=== PATIENT | female | born 1940 | race Two or more races ===

== ENCOUNTER 2017-06-24 09:51 | Inpatient (IN) | payer OTHER, MEDICAID ==
[~2017-06-24] VITALS: Ht 149.9 cm; Wt 44.5 kg
[2017-06-24 11:13] LABS: Basophils # (auto) 0.1 uL; Basophils % (auto) 0.9 % (0.0-2.0); Eosinophils # (auto) 0.3 uL; Eosinophils % (auto) 5.6 % (0.0-7.0); Hemoglobin 11.5 g/dL (12.2-16.2); Lymphocytes # (auto) 0.9 uL; Lymphocytes % (auto) 14.5 % (10.0-50.0); Mean Corpuscular Hemoglobin 30.3 pg (28.0-32.0); Mean Corpuscular Hgb Conc. 32.8 g/dL (32.0-36.0); Mean Corpuscular Volume 92.3 fL (80.0-100.0); Monocytes # (auto) 0.6 uL; Monocytes % (auto) 9.1 % (0.0-12.0); Neutrophils # (auto) 4.3 uL; Neutrophils % (auto) 69.9 % (37.0-80.0); Nucleated Red Blood Cells % 0.1 %; Platelet Count (auto) 426 10^3/uL (140-450); Red Blood Cells 3.79 10^6/uL (4.0-5.20); Red Cell Distribution Width 13.1 % (11.8-14.3); White Blood Cell 6.2 10^3/uL (4.4-10.8)
[2017-06-24 11:43] LABS: Albumin 3.9 g/dL (3.4-5.0); BUN/Creatinine Ratio 18.8; Bilirubin, Total 0.4 mg/dL (0.2-1.0); Calcium 9.1 mg/dL (8.5-10.1); Potassium 4.5 mmol/L (3.5-5.1); Total Protein 8.3 g/dL (6.4-8.2)
[2017-06-24] MEDS ORDERED: ASPirin 81 mg TAB PO ONE (13:15)
[2017-06-24] MEDS ORDERED: KETOROLAC TROMETH 30 MG/ML 1ML VIAL IM ONE (13:15)
[2017-06-24 13:26] LABS: Magnesium 1.4 mg/dL (1.6-2.6)
[2017-06-24 13:31] LABS: INR 0.92 (0.9-1.15); Partial Thromboplastin Time 29.2 sec (22.64-33.71)
[2017-06-24] MEDS ORDERED: MORPHINE SULFATE 4 MG/ML SYR/VIAL IV ONE (15:30)
[2017-06-24] MEDS ORDERED: ONDANSETRON HCL 4 MG/2 ML VIAL IV ONE (15:30)
[2017-06-24] MEDS: MAGNESIUM SULFATE 1GM/100ML 100 ML IV SCH ×2 (17:00→17:59)
[2017-06-24] MEDS ORDERED: DEXTROSE (50%) 50ML SYRG IV PRN (19:00)
[2017-06-24] MEDS ORDERED: KETOROLAC TROMETH 30 MG/ML 1ML VIAL IV PRN (19:00)
[2017-06-24] MEDS ORDERED: ONDANSETRON HCL 4 MG/2 ML VIAL IV PRN (19:00)
[2017-06-24] MEDS ORDERED: ZOLPIDEM TARTRATE 5 MG TAB PO PRN (19:00)
[2017-06-24] MEDS ORDERED: NITROGLYCERIN 0.4 MG SL TAB SL PRN ×2 (19:00)
[2017-06-24] MEDS ORDERED: LORazepam 0.5 MG TAB PO PRN (19:00)
[2017-06-24] MEDS ORDERED: ALUM & MAG HYDROX-SIMETH LIQ(MAALOX) 30 ML PO ONE (19:00)
[2017-06-24] MEDS ORDERED: MORPHINE SULF INJ 2 MG/ML SYRINGE 1ML IV PRN (19:00)
[2017-06-24] MEDS ORDERED: ACETAMINOPHEN 325 MG TAB PO PRN (19:00)
[2017-06-24] MEDS ORDERED: MORPHINE SULFATE 4 MG/ML SYR/VIAL IV PRN (19:00)
[2017-06-24 19:55] VITALS: BP 139/79
[2017-06-24] MEDS: ENALAPRIL MALEATE 2.5 MG TAB PO SCH (21:43)
[2017-06-24] MEDS: ATORVASTATIN 20 MG TAB PO SCH (21:43)
[2017-06-24] MEDS: CARVEDILOL 3.125 MG TAB PO SCH (21:43)
[2017-06-24] MEDS: ACCU-CHEK COMFORT CURVE STRIP VI SCH (21:44)
[2017-06-24] MEDS: SODIUM CHLOR 0.9% PF (SALINE LOCK) 10ML VIAL IV SCH (21:44)
[2017-06-24] MEDS: NORTRIPTYLINE HCL 10 MG CAP PO SCH (21:44)
[2017-06-24] MEDS: InsuLIN REG 1unit/0.01ml Soln (100units/ml) SC SCH (21:57)
[2017-06-24] MEDS ORDERED: GABAPENTIN 300 MG CAP PO SCH (22:00)
[2017-06-24] MEDS ORDERED: LEVO50TA7 PO (23:12)
[2017-06-24] MEDS ORDERED: NORT25CA GT (23:12)
[2017-06-24] MEDS ORDERED: RANI150C11 PO (23:12)
[2017-06-24] MEDS ORDERED: ATOR10TA52 PO (23:12)
[2017-06-24] MEDS ORDERED: LOSA50TA6 PO (23:12)
[2017-06-24] MEDS ORDERED: GABA100C9 PO (23:12)
[2017-06-24] MEDS ORDERED: AMLO5TAB2 PO (23:12)
[2017-06-24] MEDS ORDERED: METF-371 PO (23:12)
[2017-06-25 05:19] VITALS: BP 114/65
[2017-06-25] MEDS: SODIUM CHLOR 0.9% PF (SALINE LOCK) 10ML VIAL IV SCH ×3 (06:21→22:21)
[2017-06-25] MEDS: ACCU-CHEK COMFORT CURVE STRIP VI SCH ×4 (06:22→23:21)
[2017-06-25] MEDS: LEVOTHYROXINE SODIUM 50 MCG TAB PO SCH (06:22)
[2017-06-25] MEDS: InsuLIN REG 1unit/0.01ml Soln (100units/ml) SC SCH ×4 (06:23→23:21)
[2017-06-25 06:49] LABS: Basophils # (auto) 0 uL; Basophils % (auto) 0.8 % (0.0-2.0); Eosinophils # (auto) 0.4 uL; Eosinophils % (auto) 6.3 % (0.0-7.0); Hematocrit 31.3 % (36.0-46.0); Hemoglobin 10.5 g/dL (12.2-16.2); Lymphocytes # (auto) 0.9 uL; Lymphocytes % (auto) 14.9 % (10.0-50.0); Mean Corpuscular Hemoglobin 31.1 pg (28.0-32.0); Mean Corpuscular Hgb Conc. 33.7 g/dL (32.0-36.0); Mean Corpuscular Volume 92.4 fL (80.0-100.0); Monocytes # (auto) 0.5 uL; Monocytes % (auto) 8.7 % (0.0-12.0); Neutrophils % (auto) 69.3 % (37.0-80.0); Platelet Count (auto) 355 10^3/uL (140-450); Red Blood Cells 3.38 10^6/uL (4.0-5.20); White Blood Cell 5.8 10^3/uL (4.4-10.8)
[2017-06-25 07:05] LABS: Alanine Aminotransferase 17 U/L (13-56); Albumin 3.2 g/dL (3.4-5.0); Alkaline Phosphatase 62 U/L (45-117); Anion Gap 7 (5-15); Aspartate Aminotransferase 18 U/L (15-37); BUN/Creatinine Ratio 21.2; Bilirubin, Total 0.3 mg/dL (0.2-1.0); Blood Urea Nitrogen 21 mg/dL (7-18); Calcium 8.4 mg/dL (8.5-10.1); Carbon Dioxide 23 mmol/L (21-32); Chloride 99 mmol/L (98-107); Cholesterol 106 mg/dL (< 200); GFR African American 70 mL/min; GFR Non-African American 58 mL/min; Glucose 141 mg/dL (74-106); HDL Cholesterol 48 mg/dL (40-59); LDL Cholesterol 59 mg/dL (< 100); Magnesium 2.2 mg/dL (1.6-2.6); Potassium 4.7 mmol/L (3.5-5.1); Sodium 129 mmol/L (136-145); Total Protein 6.8 g/dL (6.4-8.2); Triglycerides 79 mg/dL (< 150)
[2017-06-25 08:00] VITALS: BP 120/70
[2017-06-25 09:00] VITALS: BP 120/70
[2017-06-25] MEDS ORDERED: CLOPIDOGREL BISULFATE 75 MG TAB PO SCH (10:00)
[2017-06-25] MEDS: DOCUSATE SOD 100 MG CAP PO SCH (10:00)
[2017-06-25] MEDS: ASPirin 81 mg TAB PO SCH (10:30)
[2017-06-25] MEDS: ENALAPRIL MALEATE 2.5 MG TAB PO SCH ×2 (10:30→22:23)
[2017-06-25] MEDS: LOSARTAN POTASSIUM 50 MG TAB PO SCH (10:31)
[2017-06-25] MEDS: PANTOPRAZOLE 40 MG TAB PO SCH (10:31)
[2017-06-25] MEDS: CARVEDILOL 3.125 MG TAB PO SCH ×2 (10:32→22:22)
[2017-06-25] MEDS: amLODIPine BESYLATE 5 MG TAB PO SCH (10:32)
[2017-06-25 13:00] VITALS: BP 118/59
[2017-06-25] MEDS: MORPHINE SULFATE 4 MG/ML SYR/VIAL IV PRN (14:13)
[2017-06-25 17:00] VITALS: BP 107/72
[2017-06-25] MEDS ORDERED: GABAPENTIN 300 MG CAP PO SCH (22:00)
[2017-06-25 22:13] VITALS: BP 111/68
[2017-06-25] MEDS: CELECOXIB 100 MG CAP PO SCH (22:21)
[2017-06-25] MEDS: ATORVASTATIN 20 MG TAB PO SCH (22:22)
[2017-06-25] MEDS: NORTRIPTYLINE HCL 10 MG CAP PO SCH (22:22)
[2017-06-26 04:57] VITALS: BP 102/58
[2017-06-26] MEDS: ACCU-CHEK COMFORT CURVE STRIP VI SCH ×3 (06:23→17:00)
[2017-06-26] MEDS: LEVOTHYROXINE SODIUM 50 MCG TAB PO SCH (06:23)
[2017-06-26] MEDS: SODIUM CHLOR 0.9% PF (SALINE LOCK) 10ML VIAL IV SCH ×2 (06:23→14:00)
[2017-06-26] MEDS: InsuLIN REG 1unit/0.01ml Soln (100units/ml) SC SCH ×3 (06:23→17:00)
[2017-06-26] MEDS: MORPHINE SULFATE 4 MG/ML SYR/VIAL IV PRN (06:25)
[2017-06-26 08:00] VITALS: BP 131/82
[2017-06-26 09:00] VITALS: BP 131/82
[2017-06-26] MEDS: DOCUSATE SOD 100 MG CAP PO SCH (10:00)
[2017-06-26] MEDS ORDERED: GABAPENTIN 300 MG CAP PO SCH (10:00)
[2017-06-26] MEDS ORDERED: ADENOSINE 37 MG in GIVE UN-DILUTED 0 ML IV ONE (10:45)
[2017-06-26 11:49] VITALS: BP 139/73
[2017-06-26] MEDS: CARVEDILOL 3.125 MG TAB PO SCH (13:26)
[2017-06-26] MEDS: amLODIPine BESYLATE 5 MG TAB PO SCH (13:26)
[2017-06-26] MEDS: ASPirin 81 mg TAB PO SCH (13:26)
[2017-06-26] MEDS: LOSARTAN POTASSIUM 50 MG TAB PO SCH (13:27)
[2017-06-26] MEDS: ENALAPRIL MALEATE 2.5 MG TAB PO SCH (13:27)
[2017-06-26] MEDS: CELECOXIB 100 MG CAP PO SCH (13:28)
[2017-06-26] MEDS: PANTOPRAZOLE 40 MG TAB PO SCH (13:28)
[2017-06-26] MEDS ORDERED: GABAPENTIN 100 MG CAP PO SCH (14:00)
[2017-06-26 16:37] VITALS: BP 130/75
[2017-06-26] MEDS ORDERED: GABA100C9 PO (17:20)
[2017-06-26] MEDS ORDERED: CEL100T PO (17:20)
[2017-06-26 18:02] VITALS: BP 130/75
== END 2017-06-26 19:35 | disposition home or self-care (01) | DRG 552 ==
LOC: ER 09:51 → TELE 09:52 → CENTRAL 20:02 → TELE-CENTR 06-25 05:25
PROVIDERS: ADMIT Internal Medicine; ATTEND Hospitalist
DX: M54.32 Sciatica, left side (principal); E11.21 Type 2 diabetes mellitus with diabetic nephropathy; E11.40 Type 2 diabetes mellitus with diabetic neuropathy, unspecified; E87.1 Hypo-osmolality and hyponatremia; M54.16 Radiculopathy, lumbar region; R07.89 Other chest pain; D64.9 Anemia, unspecified; E03.9 Hypothyroidism, unspecified; E11.22 Type 2 diabetes mellitus with diabetic chronic kidney disease; E78.5 Hyperlipidemia, unspecified; E83.42 Hypomagnesemia; I12.9 Hypertensive chronic kidney disease with stage 1 through stage 4 chronic kidney disease, or unspecified chronic kidney disease; K21.9 Gastro-esophageal reflux disease without esophagitis; N18.3 Chronic kidney disease, stage 3 (moderate); Z82.49 Family history of ischemic heart disease and other diseases of the circulatory system; Z83.3 Family history of diabetes mellitus; Z90.49 Acquired absence of other specified parts of digestive tract; Z91.041 Radiographic dye allergy status; Z79.899 Other long term (current) drug therapy
CPT/HCPCS: 36415; 71045; 72148; 80053; 80061; 82962; 83036; 83735; 83880; 84443; 84484; 85025; 85610; 85652; 85730; 86141; 93005; 93017; 93306; 93971; 94761; 96365; 96366; 96372; 96375; 97163; J0153; J1815; J1885; J2405

== ENCOUNTER 2019-07-19 10:30 | Emergency (ER) | payer OTHER, MEDICAID ==
[~2019-07-19] VITALS: Ht 149.9 cm; Wt 45.4 kg
[~2019-07-19 10:30] MED LIST: AMLO5TAB15 PO; ATOR10TA52 PO; CEL100T PO; GABA100C9 PO; LEVO50TA7 PO; LOSA-69 PO; METF-371 PO; NORT25CA GT; RANI150C11 PO
[2019-07-19 10:53] VITALS: BP 134/60
[2019-07-19] MEDS ORDERED: ALBUTEROL SULF 2.5 MG/0.5ML(0.5%) NEB SOLN NEB ONE (12:00)
[2019-07-19] MEDS ORDERED: IPRATROPIUM BROM 0.5 MG/2.5ML INH SOL NEB ONE (12:00)
[2019-07-19] MEDS ORDERED: cefTRIAXone SOD 1,000 MG VL IM ONE (12:00)
== END 2019-07-19 12:41 | disposition home or self-care (01) ==
LOC: ER 10:30
DX: J20.9 Acute bronchitis, unspecified (principal); J03.90 Acute tonsillitis, unspecified; K21.9 Gastro-esophageal reflux disease without esophagitis; E78.5 Hyperlipidemia, unspecified; I10 Essential (primary) hypertension; Z90.49 Acquired absence of other specified parts of digestive tract
CPT/HCPCS: 71046; 94640; 96372; 99283; J0696; J7644

== ENCOUNTER 2019-09-20 09:12 | Inpatient (IN) | payer OTHER, MEDICAID ==
[~2019-09-20] VITALS: Ht 149.9 cm; Wt 51.7 kg
[2019-09-20 09:59] LABS: Basophils # (auto) 0 10 ^3/uL (0-0.2); Basophils % (auto) 0.7 % (0.0-2.0); Eosinophils # (auto) 0.1 10 ^3/uL (0-0.8); Eosinophils % (auto) 2.1 % (0.0-7.0); Hematocrit 31.1 % (36.0-46.0); Hemoglobin 10.1 g/dL (12.2-16.2); Lymphocytes # (auto) 0.8 10 ^3/uL (0.4-5.4); Lymphocytes % (auto) 13.6 % (10.0-50.0); Mean Corpuscular Hemoglobin 29.9 pg (28.0-32.0); Mean Corpuscular Hgb Conc. 32.6 g/dL (32.0-36.0); Mean Corpuscular Volume 91.8 fL (80.0-100.0); Monocytes # (auto) 0.5 10 ^3/uL (0-1.3); Neutrophils # (auto) 4.5 10 ^3/uL (1.6-8.6); Neutrophils % (auto) 74.6 % (37.0-80.0); Nucleated Red Blood Cells % 0.1 %; Platelet Count (auto) 341 10^3/uL (140-450); Red Blood Cells 3.39 10^6/uL (4.0-5.20)
[2019-09-20 10:15] LABS: Albumin 3.3 g/dL (3.4-5.0); Anion Gap 9 (5-15); Calcium 9.1 mg/dL (8.5-10.1); Carbon Dioxide 23 mmol/L (21-32); Chloride 99 mmol/L (98-107); Glucose 124 mg/dL (74-106); Potassium 4.3 mmol/L (3.5-5.1); Sodium 131 mmol/L (136-145)
[2019-09-20 10:18] LABS: Alanine Aminotransferase 21 U/L (13-56); Aspartate Aminotransferase 25 U/L (15-37); BUN/Creatinine Ratio 33.9; Bilirubin, Total 0.3 mg/dL (0.2-1.0); Blood Urea Nitrogen 42 mg/dL (7-18); GFR African American 54 mL/min; GFR Non-African American 44 mL/min; Total Protein 7.6 g/dL (6.4-8.2)
[2019-09-20 10:20] LABS: Alkaline Phosphatase 113 U/L (45-117)
[2019-09-20] MEDS ORDERED: SODIUM CHLORIDE 0.9% 1,000 ML IV ONE ×2 (10:25→13:45)
[2019-09-20] MEDS ORDERED: KETOROLAC TROMETH 30 MG/ML 1ML VIAL IV ONE (10:30)
[2019-09-20] MEDS ORDERED: GABA-339 PO (10:42)
[2019-09-20] MEDS ORDERED: LEVO88TA4 PO (10:52)
[2019-09-20] MEDS ORDERED: MULTCHW3 PO (10:52)
[2019-09-20] MEDS ORDERED: INSU1INJ4 SC (10:52)
[2019-09-20] MEDS ORDERED: INSREG3 SC (10:52)
[2019-09-20] MEDS ORDERED: NORT10CA PO (10:52)
[2019-09-20] MEDS ORDERED: FAMO-12 PO (10:52)
[2019-09-20] MEDS ORDERED: MAGN400T40 PO (10:52)
[2019-09-20] MEDS ORDERED: ALLO100T PO (10:52)
[2019-09-20] MEDS ORDERED: ASCO500T11 PO (10:52)
[2019-09-20 12:03] LABS: Urine Bacteria NONE SEEN /hpf (None Seen); Urine Blood Negative /uL (Negative); Urine Specific Gravity 1.009 (1.001-1.035); Urine WBC 1 /hpf (0 - 5)
[2019-09-20] MEDS ORDERED: ENOXAPARIN SOD 60 MG/0.6 ML SYRINGE SC ONE (12:45)
[2019-09-20] MEDS ORDERED: cefTRIAXone 1GM/50ML D5W 50 ML IV ONE (12:45)
[2019-09-20 13:01] LABS: INR 0.96 (0.9-1.15); Partial Thromboplastin Time 29.5 sec (23.64-32.05)
[2019-09-20] MEDS ORDERED: DEXTROSE (50%) 50ML SYRG IV PRN (13:45)
[2019-09-20] MEDS ORDERED: NITROGLYCERIN 0.4 MG SL TAB SL PRN (13:45)
[2019-09-20] MEDS ORDERED: MORPHINE SULF INJ 2 MG/ML SYRINGE 1ML IV PRN (13:45)
[2019-09-20] MEDS ORDERED: WARFARIN SODIUM 5 MG TAB PO ONE (17:00)
[2019-09-20] MEDS: ACCU-CHEK COMFORT CURVE STRIP VI SCH ×2 (17:10→22:23)
[2019-09-20] MEDS: InsuLIN REG 1unit/0.01ml Soln (100units/ml) SC SCH ×2 (17:20→22:00)
--- NOTE | 2019-09-20 20:46 | NUR ---
RECEIVED PT FROM ER NURSE POC REVIEWED
[2019-09-20 20:50] VITALS: BP 130/66
[2019-09-20 21:00] VITALS: BP 130/66
[2019-09-20] MEDS: INSULIN NPH Isophane (HUMAN) 1unit/0.01ml Susp(100units/ml) SC SCH (22:00)
[2019-09-20] MEDS: ALLOPURINOL 100 MG TAB PO SCH (22:21)
[2019-09-20] MEDS: ENOXAPARIN SOD 60 MG/0.6 ML SYRINGE SC SCH (22:25)
--- NOTE | 2019-09-20 23:06 | NUR ---
[place] GIVEN ORDERED Signed: 09/20/19 at 2307 by Shannon Cline RN
--- NOTE | 2019-09-21 01:27 | NUR ---
resting with eyes closed resp even and unlabored, call light within reach bed alarm intact
[2019-09-21 05:18] VITALS: BP 135/72
[2019-09-21] MEDS: ACCU-CHEK COMFORT CURVE STRIP VI SCH ×4 (06:01→23:02)
[2019-09-21] MEDS: InsuLIN REG 1unit/0.01ml Soln (100units/ml) SC SCH ×4 (06:02→22:00)
--- NOTE | 2019-09-21 06:52 | NUR ---
awoke am care given resting with no c/o pain, am meds given as ordered
--- NOTE | 2019-09-21 06:56 | NUR ---
report given to am nurse poc reviewed
[2019-09-21] MEDS: LEVOTHYROXINE SODIUM 88 MCG TAB PO SCH (07:00)
--- NOTE | 2019-09-21 07:40 | NUR ---
Opening Shift Note Assumed care of patient, awake and alert. No S/S of distress/SOB or pain. Instructed on POC and to call for assist PRN, will continue to monitor for changes Q1hr and PRN. Bed locked in lowest position with two side rails up and call light in reach.
[2019-09-21 08:00] VITALS: BP 131/75
[2019-09-21] MEDS ORDERED: HYDROcodone-ACET 5/325MG TAB PO PRN (08:15)
[2019-09-21 09:00] VITALS: BP 131/75
[2019-09-21 09:57] LABS: Basophils # (auto) 0.1 10 ^3/uL (0-0.2); Basophils % (auto) 1.2 % (0.0-2.0); Eosinophils # (auto) 0.2 10 ^3/uL (0-0.8); Eosinophils % (auto) 3.2 % (0.0-7.0); Hematocrit 31.2 % (36.0-46.0); Hemoglobin 10.1 g/dL (12.2-16.2); Lymphocytes # (auto) 0.8 10 ^3/uL (0.4-5.4); Lymphocytes % (auto) 13.6 % (10.0-50.0); Mean Corpuscular Hemoglobin 29.7 pg (28.0-32.0); Mean Corpuscular Hgb Conc. 32.4 g/dL (32.0-36.0); Mean Corpuscular Volume 91.8 fL (80.0-100.0); Monocytes # (auto) 0.3 10 ^3/uL (0-1.3); Monocytes % (auto) 5.9 % (0.0-12.0); Neutrophils # (auto) 4.3 10 ^3/uL (1.6-8.6); Neutrophils % (auto) 76.1 % (37.0-80.0); Nucleated Red Blood Cells % 0.1 %; Platelet Count (auto) 360 10^3/uL (140-450); Red Cell Distribution Width 15.9 % (11.8-14.3); White Blood Cell 5.6 10^3/uL (4.4-10.8)
[2019-09-21 10:02] LABS: BUN/Creatinine Ratio 29.9; Calcium 8.4 mg/dL (8.5-10.1); INR 1.03 (0.9-1.15); Partial Thromboplastin Time 34.3 sec (23.64-32.05); Potassium 4.3 mmol/L (3.5-5.1)
[2019-09-21] MEDS: ENOXAPARIN SOD 60 MG/0.6 ML SYRINGE SC SCH (10:56)
[2019-09-21] MEDS: FAMOTIDINE 20 MG TAB PO SCH (10:56)
[2019-09-21] MEDS: LOSARTAN POTASSIUM 50 MG TAB PO SCH (10:57)
[2019-09-21] MEDS: ALLOPURINOL 100 MG TAB PO SCH ×2 (10:57→22:24)
[2019-09-21] MEDS: amLODIPine BESYLATE 5 MG TAB PO SCH (10:57)
[2019-09-21 13:20] VITALS: BP 129/63
[2019-09-21 16:59] VITALS: BP 120/59
--- NOTE | 2019-09-21 19:26 | NUR ---
received report from day rn poc reviewed
[2019-09-21 21:46] VITALS: BP 112/55
[2019-09-21] MEDS ORDERED: NORTRIPTYLINE HCL 10 MG CAP PO SCH (22:00)
[2019-09-21] MEDS: APIXABAN 5 MG TAB PO SCH (22:24)
[2019-09-21] MEDS: INSULIN NPH Isophane (HUMAN) 1unit/0.01ml Susp(100units/ml) SC SCH (23:01)
--- NOTE | 2019-09-22 02:10 | NUR ---
resting comfortable resp even an unlabored, call light with reach
[2019-09-22 04:48] VITALS: BP 123/75
[2019-09-22] MEDS: InsuLIN REG 1unit/0.01ml Soln (100units/ml) SC SCH ×2 (06:10→12:12)
[2019-09-22] MEDS: ACCU-CHEK COMFORT CURVE STRIP VI SCH ×2 (06:11→12:12)
[2019-09-22] MEDS: LEVOTHYROXINE SODIUM 88 MCG TAB PO SCH (06:11)
[2019-09-22 06:50] LABS: Basophils # (auto) 0 10 ^3/uL (0-0.2); Basophils % (auto) 0.9 % (0.0-2.0); Eosinophils # (auto) 0.2 10 ^3/uL (0-0.8); Eosinophils % (auto) 4.1 % (0.0-7.0); Hematocrit 30.8 % (36.0-46.0); Hemoglobin 10.2 g/dL (12.2-16.2); Lymphocytes # (auto) 0.6 10 ^3/uL (0.4-5.4); Lymphocytes % (auto) 11.1 % (10.0-50.0); Mean Corpuscular Hemoglobin 30.2 pg (28.0-32.0); Mean Corpuscular Hgb Conc. 33.1 g/dL (32.0-36.0); Mean Corpuscular Volume 91.3 fL (80.0-100.0); Monocytes # (auto) 0.6 10 ^3/uL (0-1.3); Monocytes % (auto) 10.9 % (0.0-12.0); Neutrophils # (auto) 3.8 10 ^3/uL (1.6-8.6); Platelet Count (auto) 318 10^3/uL (140-450); Red Blood Cells 3.38 10^6/uL (4.0-5.20); Red Cell Distribution Width 16.2 % (11.8-14.3); White Blood Cell 5.2 10^3/uL (4.4-10.8)
--- NOTE | 2019-09-22 06:57 | NUR ---
report given to am nurse poc reviewed
--- NOTE | 2019-09-22 08:00 | NUR ---
OPENING SHIFT NOTE ASSUMED CARE OF PATIENT AWAKE AND ALERT. NO S/S OF DISTRESS NOTED OR COMPLAINTS OF PAIN. PATIENT UPDATED ON POC FOR THE DAY AND ALL QUESTIONS ANSWERED. BED IS IN LOWEST, LOCKED POSITION WITH SIDE RAILS UP X2 AND CALL LIGHT WITHIN REACH. WILL CONTINUE TO MONITOR Q1H AND PRN.
[2019-09-22 09:23] VITALS: BP 126/74
[2019-09-22] MEDS: LOSARTAN POTASSIUM 50 MG TAB PO SCH (10:00)
[2019-09-22] MEDS: APIXABAN 5 MG TAB PO SCH (10:05)
[2019-09-22] MEDS: amLODIPine BESYLATE 5 MG TAB PO SCH (10:06)
[2019-09-22] MEDS: ALLOPURINOL 100 MG TAB PO SCH (10:06)
[2019-09-22] MEDS: FAMOTIDINE 20 MG TAB PO SCH (10:06)
[2019-09-22] MEDS ORDERED: APIX5TAB PO (11:04)
--- NOTE | 2019-09-22 13:50 | NUR ---
Discharge instructions given as ordered. Encourage to follow up with PMD as instructed. All questions and concerns addressed. Patient verbalized understanding. IV removed with catheter intact, pressure dressing applied. Telemetry unit returned to ICU. Patient taken to vehicle via wheelchair with all personal belongings, accompanied by staff. No distress noted at time of departure.
[2019-09-28] MEDS ORDERED: APIXABAN 5 MG TAB PO SCH (22:00)
== END 2019-09-22 13:00 | disposition home or self-care (01) | DRG 300 ==
LOC: ER 09:12 → TELE 09:13 → TELE-WESTW 20:42
PROVIDERS: ADMIT Hospitalist; ATTEND Hospitalist
DX: I82.421 Acute embolism and thrombosis of right iliac vein (principal); E44.1 Mild protein-calorie malnutrition; L03.115 Cellulitis of right lower limb; I82.411 Acute embolism and thrombosis of right femoral vein; I11.9 Hypertensive heart disease without heart failure; E78.5 Hyperlipidemia, unspecified; R19.00 Intra-abdominal and pelvic swelling, mass and lump, unspecified site; E05.80 Other thyrotoxicosis without thyrotoxic crisis or storm; E11.40 Type 2 diabetes mellitus with diabetic neuropathy, unspecified; Z79.01 Long term (current) use of anticoagulants; Z79.4 Long term (current) use of insulin; Z82.49 Family history of ischemic heart disease and other diseases of the circulatory system; Z83.3 Family history of diabetes mellitus; K21.9 Gastro-esophageal reflux disease without esophagitis
CPT/HCPCS: 36415; 71046; 71250; 74176; 76700; 76856; 80048; 80053; 81001; 82378; 82962; 83615; 83735; 84443; 84484; 85025; 85379; 85610; 85730; 86304; 93005; 93306; 93971; 96361; 96365; 96368; 96375; G0378; J0696; J1815; J1885